=== PATIENT | female | born 1960 | race Caucasian/White ===

== ENCOUNTER 2019-06-17 07:25 | Emergency (ER) | payer OTHER ==
[~2019-06-17] VITALS: Ht 165.1 cm; Wt 56.7 kg
[2019-06-17 07:25] VITALS: BP_SYST 136
--- NOTE | 2019-06-17 07:30 | NUR ---
Patient triaged and placed in waiting room. VSS and patient appears in no acute distress at this time. Accompanied by FRIEND, awaiting available bed, and MD notified of need for MSE.
--- NOTE | 2019-06-17 08:15 | NUR ---
BROUGHT BACK TO BED #5 AND REPORT GIVEN TO PAT
--- NOTE | 2019-06-17 08:30 | NUR ---
pt arrives from home w/ c/o left eye pain. Pt has no other c/o at that this time. Addendum: 06/17/19 at 0916 by BRANDEE right eye rednss and pain
--- NOTE | 2019-06-17 09:02 | NUR ---
DR WHITTEN AT BEDSIDE FOR EVALUATION
[2019-06-17 09:11] VITALS: BP_SYST 136
--- NOTE | 2019-06-17 09:13 | NUR ---
Patient given written and verbal discharge instructions and verbalizes understanding. ER MD discussed with patient the results and treatment provided. Patient in stable condition. ID arm band removed. Rx of Cipro given. Patient educated on pain management and to follow up with PMD. Pain Scale 0/10. Opportunity for questions provided and answered. Medication side effect fact sheet provided.
== END 2019-06-17 09:13 | disposition home or self-care (01) ==
LOC: SED 07:25
DX: H01.001 Unspecified blepharitis right upper eyelid (principal); H10.89 Other conjunctivitis
CPT/HCPCS: 99283